=== PATIENT | female | born 1970 | race Caucasian/White ===

== ENCOUNTER → 2020-10-27 15:29 | Outpatient (CLI) | payer BC, SELFPAY ==
[2019-10-02 16:29] VITALS: BMI 35.2
[2020-10-27 17:30] LABS: T4 Free Direct 0.84 ng/dL (0.76-1.46); Thyroid Stim Hormone (TSH) 3.01 uIU/mL (0.358-3.74)
== END ==
LOC: LAB 15:33
PROVIDERS: PCP Family Medicine; Referring Provider Family Medicine; Visit Provider Family Medicine
DX: E03.9 Hypothyroidism, unspecified (principal)
CPT/HCPCS: 36415; 84439; 84443

== ENCOUNTER → 2021-03-20 | Outpatient (CLI) | payer BC, SELFPAY | END | disposition home or self-care (01) | LOC: LABSPEC 16:12 | PROVIDERS: PCP Family Medicine; Visit Provider Physician Assistant Surgical | DX: Z11.52 Encounter for screening for COVID-19 (principal) | CPT/HCPCS: 87635; U0005; U0003 ==

== ENCOUNTER 2021-05-24 15:06 | Emergency (ER) | payer BC, SELFPAY ==
[2021-05-24 15:07] VITALS: BP 188/121; PULSE 107; RESP 14; TEMP 36.4; O2SAT 94; BMI 37.8
--- NOTE | 2021-05-24 15:20 | RAD_ITS ---
STUDY: X-RAY CHEST REASON FOR EXAM: Female, 50 years old. cough TECHNIQUE: 2 views COMPARISON: 12/30/2013 FINDINGS: Cardiomediastinal silhouette is unremarkable. Costophrenic angles are sharp. Multiple linear and patchy opacities noted in the bilateral mid to lower lung zones the trachea is midline. There is no pneumothorax. The bones are grossly intact. RAD/Chest 1 View (Portable) IMPRESSION: Patchy opacities in the bilateral mid to lower lungs, due to multifocal pneumonia or aspiration. Linear opacities bilaterally, suggestive of platelike atelectasis versus linear scars. Electronically Signed: Bob Higgins MD at 16:07 EST Tel , Service support ,
--- NOTE | 2021-05-24 15:20 | EKG12_ITS ---
Test Reason : SOB Blood Pressure : / mmHG Vent. Rate : 089 BPM Atrial Rate : 089 BPM P-R Int : 142 ms QRS Dur : 088 ms QT Int : 394 ms P-R-T Axes : 034 017 071 degrees QTc Int : 479 ms Normal sinus rhythm Normal ECG Confirmed by CHATO SUMMERS ([id number]), staff editor SHELBY RESENDIZ ([id number]) on 05/25/2021 11:09:58 AM Referred By: ROSA M Confirmed By:CHATO SUMMERS
--- NOTE | 2021-05-24 15:37 | EDS_ITS ---
HPI History of Present Illness Chief Complaint: Shortness of Breath Narrative Narrative: 50-year-old female on day 12 of Covid symptoms presenting with shortness of breath. She denies any chest pain, but does feel like her heart is racing. Patient states she is already been on dexamethasone which was prescribed by her primary care physician. She states she does not have any fever, chills anymore. She has not lost her sense of taste or smell. She denies headache, nausea, vomiting. [facility] Medical History Thyroid disease Home Medications dexamethasone 6 mg PO DAILY 05/24/21 [History Last Taken Unknown] levothyroxine [Euthyrox] 50 mcg PO DAILY 05/24/21 [History Last Taken Unknown] Allergy/AdvReac Type Severity Reaction Status Date / Time codeine AdvReac Nausea/Vom/ Verified 05/24/21 15:08 Diarrhea Family History Other Heart disease Hodgkins disease Surgical History History of appendectomy History of tubal ligation Social History Smoking Status: Never smoker ROS ROS ED Constitutional Constitutional ED: Denies fever(s) Eyes Eyes: Denies blurry vision or change in vision ENT ENT ED: Denies rhinorrhea Cardiovascular Cardiovascular: Reports palpitations and racing heartbeat; Denies chest pain Respiratory/Chest Respiratory/Chest: Reports dyspnea; Denies cough Gastrointestinal Gastrointestinal: Denies abdominal pain or nausea Genitourinary Genitourinary ED: Denies dysuria or hematuria Musculoskeletal Musculoskeletal: Denies arthralgias or myalgias Neurologic Neurologic: Denies headache(s) or weakness EXAM Physical Exam Const Vital Signs: 05/24/21 15:07 05/24/21 15:44 05/24/21 15:54 Temperature 97.5 F L Temperature Source Temporal Pulse Rate 107 H 89 Respiratory Rate 14 14 Respiratory Effort Short of Breath Respiratory Depth Shallow Respiratory Pattern Tachypnea Blood Pressure 188/121 H 171/95 H Blood Pressure Mean 143 120 Pulse Ox 94 93 Oxygen Delivery Method Room Air Room Air Room Air 05/24/21 16:34 05/24/21 17:29 Temperature Temperature Source Pulse Rate 87 93 Respiratory Rate 15 20 H Respiratory Effort Respiratory Depth Respiratory Pattern Blood Pressure 166/98 H 166/98 H Blood Pressure Mean 120 Pulse Ox 93 93 Oxygen Delivery Method Room Air Positive well nourished General Appearance ED: NAD HEENT Reports moist mucous membranes atraumatic Eyes PERRL and EOMs intact bilaterally Resp normal respiratory effort and clear to auscultation bilaterally Cardio regular rate and regular rhythm Neuro oriented x3 Sensorium / Orientation: alert Psych mental status grossly normal Thought Process: normal thought process Skin Lesions: no lesions Rashes: no rashes MDM MDM MDM Narrative Medical decision making narrative: Patient presenting with dyspnea. She is not hypoxic and her oxygen has wavered between 93 and 96%. She denies any chest pain. I did obtain an EKG which on my interpretation shows a sinus rhythm at 89 bpm without sign of ischemic change or dysrhythmia. Chest x-ray my interpretation shows bilateral multifocal infiltrates. The radiologist does agree. Her white blood count is 9.8, hemoglobin 14.7, hematocrit 43.0 platelets 669 which is actually high for her. Renal function and electrolytes are normal. LFTs are normal with exception of an ALT of 75. Troponin is negative at 9. I obtained a CTA of the chest which was not diagnostic for PEs. He does identify pulmonary infiltrates as expected from her COVID-19 pneumonitis. Patient has already completed a course of steroids and her work-up is ultimately negative. I did correctional classification counselor her that I feel she is safe to be discharged home. She will follow-up with her primary care provider. She is given return precautions. Impression: 1. COVID-19 pneumonia Lab Data Attestation: I reviewed the patient's lab results. Labs: Laboratory Results - last 24 hr 05/24/21 05/24/21 15:30 15:30 WBC 9.8 RBC 5.13 Hgb 14.7 Hct 43.0 MCV 83.8 MCH 28.7 MCHC 34.2 RDW Std Deviation 40.9 RDW Coeff of Eveline 13.5 Plt Count 669 H MPV 9.5 Immature Gran % (Auto) 1.700 H Neut % (Auto) 81.0 H Lymph % (Auto) 13.2 L Newton % (Auto) 3.2 Eos % (Auto) 0.6 Baso % (Auto) 0.3 Absolute Neuts (auto) 7.9 H Absolute Lymphs (auto) 1.29 Nucleated RBC % 0 Sodium 137 Potassium 3.7 Chloride 106 Carbon Dioxide 23.0 Anion Gap 8 BUN 12 Creatinine 0.66 Estim Creat Clear Calc 87.08 Est GFR (MDRD) Af Amer 121 Est GFR (MDRD) Non-Af 100 BUN/Creatinine Ratio 18.1 Glucose 118 H Calcium 9.0 Total Bilirubin 0.60 AST 31 ALT 75 H Alkaline Phosphatase 76 Troponin I High Sens 9 Total Protein 7.1 Albumin 3.3 Globulin 3.8 Albumin/Globulin Ratio 0.9 Radiography Diagnostic Testing: Clinical Impression(s) from Imaging Studies Chest X-Ray 05/24/21 15:20 IMPRESSION: Patchy opacities in the bilateral mid to lower lungs, due to multifocal pneumonia or aspiration. Linear opacities bilaterally, suggestive of platelike atelectasis versus linear scars. Electronically Signed: Bob Higgins MD at 16:07 EST Tel , Service support , Chest CTA 05/24/21 15:51 IMPRESSION: Findings consistent with Covid 19 pneumonia. No definitive evidence for pulmonary embolus. If strong clinical suspicion for pulmonary embolus DOPPLER ultrasound of deep venous system of lower extremities recommended Electronically Signed: Dago Perera MD at 16:46 EST , Service support , Discharge Plan Triage Chief Complaint: Shortness of Breath ED Provider: Jesus Stewart Dx/Rx/DC Orders Instructions: Coronavirus Disease 2019 (COVID-19): Caring for Yourself or Others Prescriptions: No Action dexamethasone 6 mg tablet 6 mg PO DAILY RF: 0 levothyroxine [Euthyrox] 50 mcg tablet 50 mcg PO DAILY RF: 0 Primary Care Provider: Franco Finch Referrals: Franco Finch DO [Primary Care Provider] - Disposition Disposition: Home, Self Care Discharge Date/Time: 05/24/21 17:30
[2021-05-24 15:38] LABS: Absolute Lymphocyte Count 1.29 X10^3/uL (0.83-4.51); Absolute Neutrophil Count 7.9 X10^3/uL (2.0-7.7); Basophil# 0.03 X10^3/uL; Basophil% 0.3 % (0-1); Eosinophil# 0.06 X10^3/uL; Eosinophils% 0.6 % (0-5); Hemoglobin 14.7 g/dL (12.0-15.0); Lymphocyte # 1.29 X10^3/ul (0.83-4.51); Lymphocyte % 13.2 % (19-41); Mean Corp Hgb Conc 34.2 g/dL (32-36); Mean Corpuscular Hgb 28.7 pg (27.0-32.0); Mean Corpuscular Volume 83.8 fL (81-99); Mean Platelet Vol. 9.5 fl (6.2-12.0); Monocyte# 0.31 X10^3/uL; Monocyte% 3.2 % (0-10); NRBC Flagged by Analyzer 0 % (0-5); Neutrophil # 7.92 X10^3/uL (2.7-7.7); Platelet Count 669 K/mm3 (150-450); RBC Distribution Width CV 13.5 % (11.6-14.6); RBC Distribution Width SD 40.9 fl (35.1-43.9); Red Blood Count 5.13 M/mm3 (4.2-5.4); White Blood Count 9.8 K/mm3 (4.4-11.0)
[2021-05-24 15:44] VITALS: O2SAT 95
--- NOTE | 2021-05-24 15:51 | CT_ITS ---
STUDY: CTA CHEST REASON FOR EXAM: Female, 50 years old. dyspnea RADIATION DOSAGE (If Supplied By Facility): CTDIvol = ( 11.23 ) mGy, DLP = ( 502.24 ) mGycm TECHNIQUE: The examination was performed with the intravenous administration of IV 100mL Isovue-370. Post-processing of the angiographic images was performed, with multiplanar reformation and 3D reconstruction. Individualized dose optimization techniques were used for this CT. COMPARISON: None. FINDINGS: There is less than optimal opacification of the pulmonary arteries due to suboptimal bolus timing however, there is no definitive evidence for intraluminal thrombus within the pulmonary arteries. Normal thoracic aorta and visualized great vessels. There is no demonstrated aortic dissection. Normal heart and pericardium. Normal mediastinum. Normal hilar regions. Normal visualized trachea and bronchi. The lungs are well expanded. There are scattered patchy areas of groundglass opacity with interstitial thickening more pronounced peripherally in both the upper and lower lobes which are consistent with Covid 19 pneumonia. Normal pleura. Normal chest wall structures. Dorsal spine demonstrates mild degenerative change. Normal visualized upper abdomen. CT/CTA Chest W/WO Contrast IMPRESSION: Findings consistent with Covid 19 pneumonia. No definitive evidence for pulmonary embolus. If strong clinical suspicion for pulmonary embolus DOPPLER ultrasound of deep venous system of lower extremities recommended Electronically Signed: Dago Perera MD at 16:46 EST , Service support ,
[2021-05-24 15:54] VITALS: BP 171/95; PULSE 89; RESP 14; O2SAT 93
[2021-05-24 15:58] LABS: ALB/GLOB Ratio 0.9 RATIO (0.9-2.4); AST(SGOT) 31 U/L (15-37); Alanine Aminotransfer ALT/SGPT 75 U/L (13-56); Albumin, Serum 3.3 g/dL (3.2-5.0); Alkaline Phosphatase 76 U/L (45-117); Anion Gap 8 (5-15); BUN 12 mg/dL (7-18); BUN/Creat Ratio 18.1 RATIO (10-20); Chloride 106 mmol/L (98-107); Creatinine, Serum 0.66 mg/dL (0.55-1.02); EST Glomerular Filtration Rate 100 mL/min (>60); Est Glom Filt Rate - Afr Amer 121 mL/min (>60); Estimated Creatinine Clearance 87.08 ml/min; Globulin 3.8 g/dL (2.2-4.2); Glucose 118 mg/dL (74-106); Potassium 3.7 mmol/L (3.5-5.1); Protein, Total 7.1 g/dL (6.4-8.2); Sodium Level 137 mmol/L (136-145); Troponin-I HS 9 pg/mL (3.0-54.0)
[2021-05-24 16:34] VITALS: BP 166/98; PULSE 87; RESP 15; O2SAT 93
[2021-05-24 17:29] VITALS: BP 166/98; PULSE 93; RESP 20; O2SAT 93
== END 2021-05-24 17:30 | disposition home or self-care (01) ==
PROVIDERS: Emergency Provider Student in an Organized Health Care Education/Training Program; PCP Family Medicine
DX: U07.1 COVID-19 (principal); J12.82 Pneumonia due to coronavirus disease 2019; E07.9 Disorder of thyroid, unspecified; Z79.890 Hormone replacement therapy; Z79.899 Other long term (current) drug therapy
CPT/HCPCS: 71045; 71275; 80053; 84484; 85025; 93005; 99284; Q9967; A4216

== ENCOUNTER 2021-09-01 16:41 | Outpatient (CLI) | payer BC, SELFPAY ==
[2021-09-01 17:44] LABS: Absolute Lymphocyte Count 1.82 X10^3/uL (0.83-4.51); Basophil# 0.07 X10^3/uL; Basophil% 1.1 % (0-1); Eosinophil# 0.18 X10^3/uL; Eosinophils% 2.7 % (0-5); Hematocrit 40.6 % (37-47); Hemoglobin 13.5 g/dL (12.0-15.0); Lymphocyte # 1.82 X10^3/ul (0.83-4.51); Lymphocyte % 27.7 % (19-41); Mean Corp Hgb Conc 33.3 g/dL (32-36); Mean Corpuscular Hgb 29.3 pg (27.0-32.0); Mean Corpuscular Volume 88.3 fL (81-99); Mean Platelet Vol. 11.1 fl (6.2-12.0); Monocyte# 0.45 X10^3/uL; Monocyte% 6.8 % (0-10); NRBC Flagged by Analyzer 0 % (0-5); Neutrophil # 4.04 X10^3/uL (2.7-7.7); Neutrophil % 61.5 % (47-70); Platelet Count 316 K/mm3 (150-450); RBC Distribution Width CV 13.6 % (11.6-14.6); RBC Distribution Width SD 44.3 fl (35.1-43.9); White Blood Count 6.6 K/mm3 (4.4-11.0)
[2021-09-01 18:07] LABS: Vitamin D,25 Hydroxy 12.7 ng/mL
[2021-09-01 18:14] LABS: Ferritin 51 ng/mL (8-252); T4 Free Direct 0.76 ng/dL (0.76-1.46); Thyroid Stim Hormone (TSH) 3.08 uIU/mL (0.358-3.74)
[2021-09-04 14:06] LABS: Vitamin D 1,25-Dihydroxy 48.5 pg/mL (19.9-79.3); Zinc, WHOLE BLOOD 584 ug/dL (440-860)
== END 2021-09-01 23:59 | disposition home or self-care (01) ==
LOC: MTLAB 16:41
PROVIDERS: PCP Family Medicine; Referring Provider Dermatology; Visit Provider Dermatology
DX: L65.0 Telogen effluvium (principal); L82.1 Other seborrheic keratosis; L81.4 Other melanin hyperpigmentation; D22.5 Melanocytic nevi of trunk; L57.8 Other skin changes due to chronic exposure to nonionizing radiation; L40.0 Psoriasis vulgaris; Z71.89 Other specified counseling
CPT/HCPCS: 36415; 82306; 82652; 82728; 84439; 84443; 84630; 85025

== ENCOUNTER 2021-12-15 06:54 | Day surgery (SDC) | payer BC, SELFPAY ==
--- NOTE | 2021-12-08 14:54 | PCM.HP.BLA ---
History and Physical Date of Admission: 12/15/21 HPI: The patient is a 51 year old female presenting for pre-operative visit. She is scheduled for hysteroscopy D&C with possible polyp resection, for AUB, endometrial polyp on . Procedure discussed along with risks, benefits and complications. Other alternatives discussed for management. Consent form signed? yes. ? ? PAST MEDICAL HISTORY PAST MEDICAL HISTORY Diagnosis Date ? Anxiety ? ? Hyperlipidemia ? ? Hypothyroid ? ? ? PAST SURGICAL HISTORY PAST SURGICAL HISTORY Procedure Laterality Date ? APPENDECTOMY ? 1988 ? TUBAL LIGATION, ? 1990 ? ? ? CURRENT MEDICATIONS Current Outpatient Medications Medication Sig Dispense Refill ? LORazepam (ATIVAN) 0.5 mg TAKE 1 TABLET BY MOUTH EVERY DAY AT BEDTIME NEEDED FOR ANXIETY. EACH FILL MUST LAST 30 DAYS OR LONGER. ? ? ? levothyroxine (LEVOXYL) 50 mcg tablet Take 1 tablet by mouth once daily. Take on empty stomach. For Thyroid 30 tablet 2 ? miSOPROStol (CYTOTEC) 200 mcg tablet Use 2 tablets vaginally as directed. The night before the procedure and the morning of the procedure. (Patient not taking: Reported on 11/02/2021 ) 4 tablet 0 ? No current facility-administered medications for this visit. ? ? ALLERGIES: Codeine, Celexa [Citalopram Hydrobromide], Lisinopril, and Zoloft [Sertraline Hcl] ? PERSONAL HISTORY: SOCIAL HISTORY Social History ? Tobacco Use ? Smoking status: Former Smoker ? ? Packs/day: 1.00 ? ? Years: 20.00 ? ? Pack years: 20.00 ? ? Types: Cigarettes ? Smokeless tobacco: Never Used ? Tobacco comment: quit 2009 Vaping Use ? Vaping Use: Never used Substance Use Topics ? Alcohol use: No ? Drug use: No ? FAMILY HISTORY: FAMILY HISTORY FAMILY HISTORY Problem Relation Age of Onset ? Hypertension Mother ? ? Psychiatry Mother ? ? depression ? other (aortic stenosis) Mother ? ? other (atrial fibrillation) Mother ? ? other (Hodgkin's disease) Father ? ? Anxiety disorder Brother ? ? other (diverticulitis) Brother ? ? Seizures Son ? ? Heart Maternal Grandmother ? ? other (cva) Maternal Grandmother ? ? Heart Paternal Grandfather ? ? Breast Cancer Maternal Aunt ? ? ? REVIEW OF SYMPTOMS: GENERAL: denies fevers or chills ENDOCRINOLOGY: has not been on steroids Cardiology : denies palpitations or chest pain Respiratory: denies SOB or cough Hematology: denies history of prolonged bleeding or easy bruising or VTE Allergy: Denies history of personal or family history of allergy to anesthesia ? PHYSICAL EXAMINATION: ? VITALS: Last menstrual period 10/25/2021. ? GENERAL: The patient is well nourished, well hydrated in no acute distress. , The patient is oriented to time, place, and person. NECK: Supple. No lynphadenopathy, normal thyroid, no thyromegaly. LUNGS: Clear to auscultation bilaterally. no wheezes, rhonchi or rales HEART: Regular rate and rhythm, Normal heart sounds and No murmurs or gallops ? ? PELVIC US 11/02/21: Impression Normal appearing anteverted uterus that measures 90 mm x 46 mm x 53 mm. The central endometrium complex measures 6.8 mm in combined thickness. There is a heterogenous area noted with blood flow, this could represent a small polyp. The contour of the endometrial cavity was normal on 3-D imaging. Both ovaries are visualized. the right ovary is normal. the left ovary has a small ?simple appearing cyst that measures 2.8cm in greatest dimension. There is no free fluid visualized in the peritoneal cavity. ? IMPRESSION: AUB, endometrial polyp ? PLAN: The risks/benefits/alternatives and personal involved for the planned hysteroscoy D&C with possible polyp resection were reviewed with the patient. Her questions were answered to her satisfaction and she desires to proceed. Consent was signed. I reviewed with her postop instructions and expectations. ? ? I have reviewed and updated past medical and surgical history, medications and allergies Assessment & Plan Assessment/Plan (1) Abnormal uterine bleeding (AUB): (2) Endometrial polyp:
[2021-12-15 07:23] VITALS: BP 151/96; PULSE 89; RESP 16; TEMP 36.2; O2SAT 100; BMI 36.9
[2021-12-15] MEDS: Acetaminophen 500 MG Tablet 1000 MG PO (07:28)
[2021-12-15] MEDS: Ketorolac 30 MG/ML Syringe IV (07:28)
[2021-12-15] MEDS: Lactated Ringers 1,000 ML 70 ML IV (07:28)
[2021-12-15 07:31] LABS: Hematocrit 41.1 % (37-47); Hemoglobin 13.5 g/dL (12.0-15.0); Mean Corp Hgb Conc 32.8 g/dL (32-36); Mean Corpuscular Hgb 28.8 pg (27.0-32.0); Mean Corpuscular Volume 87.6 fL (81-99); Platelet Count 291 K/mm3 (150-450); RBC Distribution Width CV 12.8 % (11.6-14.6); Red Blood Count 4.69 M/mm3 (4.2-5.4); White Blood Count 5.6 K/mm3 (4.4-11.0)
[2021-12-15 07:34] LABS: Internal QC Validated? YES +Cl - CLEAR BKGD; Pregnancy, Urine Negative Negative
--- NOTE | 2021-12-15 08:35 | EMB_PTH ---
PATIENT: REENA PETTY LOC: [facility] U#:[id number] AGE/SX: 51/F ROOM: RE12/15/[address]: Dr. Renee Luna MD : 1970 BED: DIS: 12/15/2021 SPEC #: [id number] RECD: 12/15/21 10:10 STATUS: GLORIA RERito #: [id number] NOEMI: 12/15/21 08:[address]: Renee Luna DEPT: SURGICAL PATHOLOGY RECD BY: Lexie Jeffries ENTERED: 12/15/21 10:57 SP TYPE: ENDOM BX/C OTHR DR: Dr. Franco Finch, DO Tissues: Endometrium, NOS Procedures: Surgery Specimen Level IV HEADER OPERATION: Hysteroscopy, Symphion D & C PRE-OP DIAGNOSIS: Endometrial polyp, abnormal uterine bleeding TISSUE SUBMITTED: Endometrial curettings MICROSCOPIC DIAGNOSIS Endometrial curettings: Scant strips of benign endometrial epithelium. Fragments of benign ecto- and endocervical epithelium, blood and mucous. A few minute fragments of myometrium. See comment. CARLOS:abdi 12/16/2021 COMMENT The specimen predominantly consists of blood, mucous and fragments of benign ecto- and endocervical epithelium. Clinical correlation and appropriate follow up are necessary. MICROSCOPIC DESCRIPTION Slides are reviewed. GROSS DESCRIPTION Received in fixative is one container labeled with the patient's name and designated endometrial curettings. The specimen consists of multiple fragments of hemorrhagic soft tissue mixed with mucoid tissue that in aggregate measure 3 x 2.5 x 0.1 cm. The specimen is totally submitted in one cassette. / CARLOS:abdi 12/15/2021 TC:4 CPT: 29703
[2021-12-15] MEDS: Lidocaine 1% /Epi 1:100 (20ml) 20 ML Vial (09:20)
--- NOTE | 2021-12-15 09:34 | PCM.DC ---
Discharge Instructions Diet Discharge Diet: No restrictions Activity Return to work on:: 12/16/21 May shower in (days): 1 May resume sexual activity in: 1 week Lifting Restrictions: none Dressing / Incision Call your doctor if your incision/area has: Sudden Increased Bleeding and Foul Smelling Discharge Call your doctor if you observe: Fever of 101 or Higher and Using more than 1 pad per hour (for 2 hrs in a row) Follow Up Care Please Follow Up With: Renee Luna MD When: 2-4 weeks or as needed. Call [phone] to make an appointment or with any concerns. Test Results: Test results from this visit will be discussed in further detail at your follow-up appointment, if applicable. Discharge Plan Admission Primary Reason for Your Visit: D&C Attending Provider: Renee Luna Primary Care Provider: Franco Finch Discharge Orders/Prescriptions Prescriptions: No Action levothyroxine [Euthyrox] 50 mcg tablet 50 mcg PO DAILY RF: 0 lorazepam 0.5 mg tablet 0.5 mg PO QHS RF: 0 Referrals / Follow Up: Franco Finch DO [Primary Care Provider] - Disposition Disposition (needs filled in before D/C Order can be placed): Home, Self Care
[2021-12-15] MEDS: Lactated Ringers 1,000 ML 75 ML IV (09:35)
--- NOTE | 2021-12-15 09:50 | PCM.OPRPT ---
Problems Associated Problem List Diagnoses (1) Abnormal uterine bleeding (AUB): Report of Operation Date of Procedure: 12/15/21 Pre-Operative Diagnosis: AUB Post-Operative Diagnosis: same Surgery/Procedure Performed:: Hysteroscopy D&C Description of Surgical Findings:: thin endometrium, normal cervix and vagina, no uterine pathology noted Surgeon: Renee Luna prefinish operator: None Type of Anesthesia: MAC/Supplemental/Local Anesthesiologist: Maude Gerardo Special Medications: none Specimen's removed: endometrial curettings Drains: none Estimated Blood Loss (mL): 10 Fluids Replaced: 900 Description of Procedure: The patient was taken to the OR where she was prepped and draped in dorsal lithotomy position. The weighted speculum was placed in the vagina and the anterior lip of the cervix was grasped with a single-tooth tenaculum. A paracervical block was administered with 1% lidocaine with 1-100,000 epinephrine solution. The cervix was dilated serially with Hegar dilators. The 5mm hysteroscope was placed into the uterine cavity and the above findings were noted. Bilateral tubal ostia were identified. The hysteroscope was removed. A gentle sharp curettage was done of the uterine cavity. The instruments were removed from the vagina. The specimen was handed off and sent to pathology. All sponge and needle counts were correct. Vaginal sweep was performed by me. The patient was awakened and taken to the recovery room in stable condition. Hysteroscopic fluid deficit 100 cc of normal saline Findings: Endometrial cavity: Normal, no fibroids or polyps noted Cervix: Normal Vagina: Normal Grafts/Implants Used: none Procedure Start Time: 09:44 Procedure Stop Time: 09:50 Complications none Admit VTE Documentation VTE Present on Admission: No VTE Mechan Device Prophylaxis: SCD's VTE Pharm Prophylaxis ordered?: No Reason prophylaxis not ordered:: Procedure Not Indicated
[2021-12-15 10:00] VITALS: BP 138/74; BP 151/96; PULSE 80; RESP 15; TEMP 36.1; O2SAT 91
[2021-12-15 10:05] VITALS: BP 117/77; BP 151/96; PULSE 72; RESP 16; O2SAT 93
[2021-12-15 10:10] VITALS: BP 128/76; BP 151/96; PULSE 74; RESP 16; O2SAT 97
[2021-12-15 10:15] VITALS: BP 126/75; BP 151/96; PULSE 73; RESP 15; TEMP 36.1; O2SAT 97
[2021-12-15 10:36] VITALS: BP 151/96
== END 2021-12-15 10:50 | disposition home or self-care (01) ==
LOC: SDC 06:57 → AC 06:58
PROVIDERS: PCP Family Medicine; Referring Provider Obstetrics & Gynecology; Visit Provider Obstetrics & Gynecology
PROC: 0UB98ZZ Excision of Uterus, Via Natural or Artificial Opening Endoscopic (ICD-10-PCS; CPT 58558; principal; 2021-12-15 08:20)
DX: N93.9 Abnormal uterine and vaginal bleeding, unspecified (principal); E78.5 Hyperlipidemia, unspecified; E03.9 Hypothyroidism, unspecified; F41.9 Anxiety disorder, unspecified; Z79.890 Hormone replacement therapy; Z79.899 Other long term (current) drug therapy; Z87.891 Personal history of nicotine dependence
CPT/HCPCS: 58558; 81025; 85027; 88305; J7120; J2405

== ENCOUNTER → 2022-02-15 | Outpatient (CLI) | payer BC, SELFPAY ==
--- NOTE | 2022-02-15 16:14 | US_ITS ---
STUDY: SUPERFICIAL ULTRASOUND - RIGHT FOREARM REASON FOR EXAM: Female, 51 years old. MASS RT FOREARM TECHNIQUE: A superficial ultrasound was performed with real-time and static case-scale imaging. COMPARISON: None. FINDINGS: Ultrasound evaluation of the right forearm in the area of concern shows a complex 2.8 x 2.4 x 0.8 cm complex subcutaneous lesion. There is some subtle vascularity noted. Findings suggest a likely posttraumatic hematoma or seroma. Similar area of the left forearm performed for comparison and there is no corresponding abnormal in the left forearm. US/Ext Non Vasc Limited/Soft Tiss IMPRESSION: Complex solid and cystic 2.8 x 2.4 x 0.8 cm lesion in the subcutaneous fat of the right forearm. Likely post traumatic hematoma or seroma. Follow-up recommended to ensure resolution Electronically Signed: Miles Rivas MD at 11:19 EDT ,
== END | disposition home or self-care (01) ==
LOC: US 16:10
PROVIDERS: PCP Family Medicine; Referring Provider Family Medicine; Visit Provider Family Medicine
DX: R22.31 Localized swelling, mass and lump, right upper limb (principal)
CPT/HCPCS: 76882

== ENCOUNTER → 2022-11-17 | Outpatient (CLI) | payer BC, SELFPAY ==
--- NOTE | 2022-11-17 15:07 | ECHOD_ITS ---
Reason For Study: Palpitations Procedure This was a 2D Doppler, Color Flow transthoracic echocardiogram. Exam performed in department. Left Ventricle Normal LV size. Left ventricular systolic function is normal. The estimated ejection fraction is 60 %. Stage 1 diastolic dysfunction. No regional wall motion abnormalities noted. Right Ventricle Normal RV size. Normal systolic function. Atria Normal left atrium. Normal right atrium. Mitral Valve Normal mitral valve. Tricuspid Valve Normal tricuspid valve. Mild tricuspid valve insufficiency. Pulmonary artery systolic pressure is 30 mmHg. Aortic Valve Normal aortic valve. Trisinus/trileaflet aortic valve. Pulmonic Valve Normal pulmonic valve. Great Vessels Normal aortic root. The pulmonary artery is normal size. Normal inferior vena cava. Pericardium/Pleural No pericardial effusion. MMode/2D Measurements & Calculations LVIDd: 4.0 cm IVSd: 0.96 cm Ao root diam: 3.3 cm LVIDs: 2.7 cm LVPWd: 0.71 cm LA dimension: 4.0 cm RVDd: 3.4 cm FS: 31.3 % LAV(MOD-bp): 49.4 ml LVAd ap4: 28.6 cm2 SV(MOD-sp4): 51.9 ml LAV(MOD-bp) Indexed: 24.6 ml/m2 LVLd ap4: 7.6 cm LAV(MOD-sp2): 55.8 ml EDV(MOD-sp4): 86.0 ml LAV(MOD-sp4): 41.5 ml EDV(sp4-el): 90.9 ml LVAs ap4: 16.1 cm2 LVLs ap4: 6.3 cm ESV(MOD-sp4): 34.1 ml ESV(sp4-el): 34.7 ml EF(MOD-sp4): 60.3 % EF(sp4-el): 61.8 % SV(sp4-el): 56.1 ml LA A4 area: 17.1 cm2 RA A4 area: 12.7 cm2 Time Measurements MV dec time: 0.26 sec Doppler Measurements & Calculations MV E max paul: 67.6 cm/sec Lat Peak E' Paul: 12.5 cm/sec Med Peak E' Paul: 8.4 cm/sec MV A max paul: 81.4 cm/sec E/E' lat: 5.4 E/E' med: 8.1 MV E/A: 0.83 MV V2 max: 84.9 cm/sec MV P1/2t max paul: 75.0 cm/sec Ao V2 max: 132.3 cm/sec MV max P.9 mmHg MV P1/2t: 84.3 msec Ao max P.0 mmHg MV V2 mean: 53.0 cm/sec Ao V2 mean: 92.7 cm/sec MV mean P.3 mmHg MV dec slope: 260.7 cm/sec2 Ao mean P.9 mmHg MV V2 VTI: 21.9 cm MVA(P1/2t): 2.6 cm2 Ao V2 VTI: 32.0 cm AV (velocity ratio): 0.82 LV V1 max: 109.8 cm/sec PA V2 max: 109.6 cm/sec TR max apul: 253.7 cm/sec LV V1 max P.8 mmHg PA V2 mean: 76.2 cm/sec TR max P.7 mmHg LV V1 mean P.5 mmHg LV V1 mean: 73.8 cm/sec LV V1 VTI: 26.4 cm ECHO/Echo Complete Interpretation Summary Normal LV size. Left ventricular systolic function is normal. The estimated ejection fraction is 60 %. Stage 1 diastolic dysfunction. Pulmonary artery systolic pressure is 30 mmHg. Ordering Physician: Lupillo Curtis Referring Physician: Franco Finch Performed By: Brenden Mills RCS
== END | disposition home or self-care (01) ==
LOC: CVS 14:59
PROVIDERS: PCP Family Medicine; Referring Provider Internal Medicine Cardiovascular Disease; Visit Provider Internal Medicine Cardiovascular Disease
DX: R00.2 Palpitations (principal); I10 Essential (primary) hypertension
CPT/HCPCS: 93306

== ENCOUNTER → 2023-08-13 | Outpatient (CLI) | payer OTHER, SELFPAY ==
--- OUTSIDE RECORDS SUMMARY | 2023-08-13 09:56 | XMS RPT_ITS | CCD ---
Author Name Unknown Address [address] [place] [address] Organization [facility] Care Team Providers Care Manager Hematology Name Role Phone Shavon Finch APRN.CNP Primary Care Provider SHAVON FINCH Attending Unavailable SHAVON FINCH Primary Care Unavailable SHAVON FINCH Referring Unavailable SHAVON FINCH Primary Care Unavailable Allergies Allergy Classification Reported Allergen(s) Allergy Type Date of Onset Reaction(s) Facility (11 sources) Citalopram; Translations: [CITALOPRAM HYDROBROMIDE] Drug Allergy 01-15-2016 Other: See Comments [facility] Work Phone: (11 sources) Codeine; Translations: [CODEINE] Drug Allergy 06-23-2010 Vomiting [facility] (11 sources) Lisinopril; Translations: [LISINOPRIL] Drug Allergy 02-04-2016 Other: See Comments [facility] Work Phone: (11 sources) Sertraline; Translations: [SERTRALINE HCL] Drug Allergy 02-04-2016 Intolerance [facility] Work Phone: Medications Current Medications Medication Drug Class(es) Dates Sig (Normalized) Sig (Original) betamethasone 0.5 mg/ml / clotrimazole 10 mg/ml topical cream (2 sources) Azole Antifungal, Corticosteroid Start: 10-26-2021 End: 11-02-2021 clotrimazole-beta methasone (LOTRISONE) cream Apply 1 application to affected area twice daily for 7 days. 15 g 0 10/26/2021 11/02/2021 Active Completed/Discontinued Medications Medication Drug Class(es) Dates Sig (Normalized) Sig (Original) amLODIPine 5 mg oral tablet (3 sources) Dihydropyridine Calcium Channel Rafael Start: 08-18-2022 take 1 tablet by mouth once daily amLODIPine (NORVASC) 5 mg tablet Indications: Hypertension, essential Take 1 tablet by mouth once daily. 30 tablet 1 08/18/2022 Active Problems Active Problems Problem Classification Problem Date Documented Date Episodic/Chronic Disorders of lipid metabolism (13 sources) Hyperlipidemia; Translations: [Hyperlipidemia, unspecified] Onset: 06-23-2010 06-23-2010 Chronic Essential hypertension (14 sources) Essential hypertension; Translations: [Essential (primary) hypertension] Onset: 01-15-2016 01-15-2016 Chronic Menopausal disorders (2 sources) Postmenopausal bleeding; Translations: [Postmenopausal bleeding] Chronic Mood disorders (10 sources) Depressive disorder; Translations: [Depression] Onset: 01-15-2016 01-15-2016 Chronic Osteoarthritis (10 sources) Arthritis of right ankle; Translations: [Primary osteoarthritis, right ankle and foot] Onset: 01-15-2014 01-15-2014 Chronic Other and unspecified benign neoplasm (1 source) Lipoma of trunk; Translations: [Benign lipomatous neoplasm of skin and subcutaneous tissue of trunk] Episodic Other female genital disorders (1 source) Abnormal uterine bleeding; Translations: [Abnormal uterine and vaginal bleeding, unspecified] Chronic Other female genital disorders (1 source) Polyp of corpus uteri; Translations: [Polyp of corpus uteri] Episodic Other nutritional; endocrine; and metabolic disorders (10 sources) Obesity; Translations: [Obesity, unspecified] Onset: 01-15-2014 01-15-2014 Chronic Other screening for suspected conditions (not mental disorders or infectious disease) (1 source) Endometrium thickened; Translations: [Abnormal findings on diagnostic imaging of other specified body structures] Chronic Other screening for suspected conditions (not mental disorders or infectious disease) (5 sources) Patient encounter status; Translations: [Encounter for screening mammogram for malignant neoplasm of breast] Episodic Thyroid disorders (1 source) Subclinical hypothyroidism; Translations: [Other specified hypothyroidism] Chronic Past or Other Problems Problem Classification Problem Date Documented Da te Episodic/Chronic Acquired foot deformities (10 sources) Talipes planus; Translations: [Flat foot [pes planus] (acquired), unspecified foot] Onset: 01-15-2014 01-15-2014 Episodic Cardiac dysrhythmias (12 sources) Palpitations; Translations: [Palpitations] Onset: 01-15-2016 01-15-2016 Episodic Results Test Name Value Interpretation Reference Range Facil ity Vital Signs Date Time Vital Sign Value Performing Clinician Lexis georgie 08-18-2022 16:56-0500 Body height 161.8 cm Shavon Josette PRODUCTION TECHNICIAN.[employer] Work Phone: [facility] 08-18-2022 16:56-0500 Body weight 101.79 kg Shavon Josette PRODUCTION TECHNICIAN.[employer] Work Phone: [facility] 08-18-2022 16:56-0500 Diastolic blood pressure 96 mm[Hg] Shavon Josette PRODUCTION TECHNICIAN.[employer] Work Phone: [facility] 08-18-2022 16:56-0500 Heart rate 83 /min Shavon Josette PRODUCTION TECHNICIAN.[employer] Work Phone: [facility] 08-18-2022 16:56-0500 Respiratory rate 16 /min Shavon Josette PRODUCTION TECHNICIAN.[employer] Work Phone: [facility] 08-18-2022 16:56-0500 SaO2% (BldA) [Mass fraction] 94 % Shavon Josette PRODUCTION TECHNICIAN.[employer] Work Phone: [facility] 08-18-2022 16:56-0500 Systolic blood pressure 164 mm[Hg] Shavon Josette PRODUCTION TECHNICIAN.[employer] Work Phone: [facility] 10-26-2021 16:14-0400 Body weight 102.51 kg Alyssa Hawthorne PRODUCTION TECHNICIAN.[employer] Work Phone: [facility] 10-26-2021 16:14-0400 Diastolic blood pressure 88 mm[Hg] Alyssa Jeff PRODUCTION TECHNICIAN.[employer] Work Phone: [facility] 10-26-2021 16:14-0400 Systolic blood pressure 138 mm[Hg] Alyssa Jeff PRODUCTION TECHNICIAN.[employer] Work Phone: [facility] Encounters Encounter Date Encounter Type Care Provider Facility Start: 04-27-2023 ambulatory Shavonbg parker PRODUCTION TECHNICIAN[employer] Work Phone: [facility] [place] Start: 09-13-2022 Telephone encounter Shavon Jimenez PRODUCTION TECHNICIAN.[employer] Work Phone: Family Medicine [place] Procedures Date Procedure Procedure Detail Performing Clinician Start: 08-16-2022 Lipid 1996 panel - S vincent or Plasma Shavon Finch PRODUCTION TECHNICIAN[employer] Work Phone: Start: 08-25-2015 Mammography Alyssa [facility] PRODUCTION TECHNICIAN.[employer] Work Phone: Plan of Treatment Date Care Activity Detail Author Start: 08-16-2027 Lipid 1996 panel - S vincent or Plasma Lipid Screening [facility] Start: 08-16-2027 LIPID SCREEN LIPID SCREEN [facility] Start: 08-16-2025 DIABETES SCREEN DIABETES SCREEN [facility] Start: 08-16-2025 Diabetes Screening Diabetes Screenin g [facility] Start: 07-30-2024 HPV TESTING HPV TESTING [facility] Start: 07-30-2024 PAP TESTING PAP TESTING [facility] Start: 08-18-2023 ANNUAL PCP TEAM BAR SUPERVISOR DEMETRIUS DISEASE VISIT ANNUAL PCP TEAM CHRONIC DISEASE VISIT [facility] Start: 08-18-2023 Urine microalbumin profile [facility] Payers Date Payer Category Payer Unknown [employer] [employer] P[employer] [id number] 2019-Present [phone] [address] [place] [id number] PPO [id number] 2019 Unknown [employer] PPO [id number] 2019-Present [phone] [address] [place] [address] PPO [id number] 2019 Unknown [id number] Social History Date Type Detail Facility Start: 08-25-2015 End: 08-18-2022 Tobacco smoking status NHIS Ex-smoker [facility] Work Phone: History of tobacco use Cigarette Smoker C [facility] Work Phone: Start: 05-26-2020 End: 08-18-2022 Alcohol intake Current non-drinker of alcohol (finding) [facility] Start: 07-30-2019 End: 08-11-2022 History SDOH Social Connections Phone 5 [facility] Start: 07-30-2019 End: 08-11-2022 History SDOH Social Connections Get Together 3 [facility] Start: 07-30-2019 End: 08-11-2022 History SDOH Social Connections Jain 2 [facility] Start: 07-30-2019 End: 08-11-2022 History SDOH Social Connections Membership 1 [facility] Start: 07-30-2019 End: 08-11-2022 History SDOH Social Connections Living 4 [facility] Start: 07-30-2019 End: 08-11-2022 History SDOH Physical Activity DPW 0 [facility] Start: 07-30-2019 Education 13 [facility] Start: 1970 Sex Assigned At Not on file C [facility] Start: 10-16-2021 End: 11-24-2021 Exposure to SARS-CoV-2 (event) Not sure [facility] History of tobacco use Current smoker [facility] Work Phone: Start: 08-25-2015 End: 08-06-2022 Cigarettes smoked current (pack per day) - Reported 1 [facility] Start: 08-25-2015 End: 08-18-2022 Tobacco use and exposure Smokeless tobacco non-user [facility] Work Phone: Start: 08-18-2022 Tobacco Comment quit 2008 [facility] Start: 08-06-2022 End: 08-11-2022 Social connection and isolation panel [facility] Do you belong to any clubs or organizations such as adventism groups, unions, fraternal or athletic groups, or school groups? Yes [facility] Are you now , , , , never or living with a partner? [facility] How often to you hav e a drink containing alcohol? Never [facility] How many standard dr inks containing alcohol do you have on a typical day? Patient does not drink [facility] How hard is it for y ou to pay for the very basics like food, housing, medical care, and heating Somewhat hard [facility] Do you feel stress - tense, restless, nervous, or anxious, or unable to sleep at night because your mind is troubled all the time - these days [OSQ] Rather much [facility] (I/We) worried wheth er (my/our) food would run out before (I/we) got money to buy more. Never true [facility] In the past 12 month s, was there a time when you were not able to pay the mortgage or rent on time? No [facility] Clinical Notes 10-26-2021 to 04-27-2023 Telephone Encounter - Madelin Esposito Pss - 09/13/2022 4:14 PM ESTTelephone Encounter - Gisel Ayers LPN - 09/13/2022 3:05 PM ESTJazzmin Holiday - 08/18/2022 6:18 PM ESTPatient Instructions Note Date & Type Note Facility 04-27-2023 Note Patient Outreach (IN TMMN) JANAY PETTY ([id number]) 1970 F Date Time Provider Department 04/27/23 SHAVON FINCH During your visit today, we recorded the following information about you: Allergies As of Date: 04/27/2023 Noted Allergy Reaction CODEINE 06/23/2010 11 - Vomiting CELEXA (CITALOPRAM HYDROBROMIDE) 01/15/2016 14 - Other: See Comments Comments: Nausea and jaws felt tight LISINOPRIL 02/04/2016 14 - Other: See Comments Comments: Burning mouth and neck/throat tightness ZOLOFT (SERTRALINE HCL) 02/04/2016 5 - Intolerance Comments: Food and taste alteration, palpitations, decreased appetite Date Reviewed: 08/18/2022 Reviewed by: Shavon Finch APRN.[employer] - Fully Assessed Visit Diagnosis:Encounter for screening mammogram for breast cancer [Z12.31] Order(s):[facility] SCREENING [[id number]] Order #: [id number] FUTURE Prescriptions as of 05/02/2023 - levothyroxine (LEVOXYL) 50 mcg tablet Take 1 tablet by mouth once daily. Take on empty stomach. For Thyroid - amLODIPine (NORVASC) 5 mg tablet Take 1 tablet by mouth once daily. - LORazepam (ATIVAN) 0.5 mg TAKE 1 TABLET BY MOUTH EVERY DAY AT BEDTIME NEEDED FOR ANXIETY. EACH FILL MUST LAST 30 DAYS OR LONGER. Problem List As Of Date 04/27/2023 Noted Resolved Hyperlipidemia [E78.5] Flat foot [M21.40] 01/15/2014 Obesity [E66.9] 01/15/2014 Arthritis of ankle, right [M19.071] 01/15/2014 Depression [F32.A] 01/15/2016 Essential hypertension [I10] 01/15/2016 Palpitations [R00.2] 01/15/2016 Encounter Status:Closed by [email or web address] on 05/02/23 [facility] 11-04-2022 Note HNO ID: [id number] Author: Torsten Chung Service: ? Author Type: ? Type: Progress Notes Filed: 11/04/2022 11:16 AM Note Text: 3rd failed attempt to schedule colonoscopy. Left VM, sent MyChart, and letter. JN 11/04 [facility] 09-13-2022 Miscellaneous Notes Patient is requesting referral and any testing for Cardiology be faxed to [facility] [place] [facility] as we are scheduling out several Months in [place]. Phoned patient and reviewed results and recommendations with her. She voiced understanding and was directed to scheduling desk for consult appointment. Please let Janay know that I received her heart monitor results. There were a few areas of elevated heart beat and some beats that may have caused some of the feelings she is having. I d like her to see cardiology for their opinion and to see if they feel any further testing or monitoring would be appropriate. Please assist her to schedule this appointment. Shavon Finch APRN.CHAITANYA documented in this encounter [facility] 08-19-2022 Note HNO ID: [id number] Author: Neeta Barnes Service: ? Author Type: ? Type: Progress Notes Filed: 08/19/2022 11:10 AM Note Text: 08-19 1'st failed attempt to contact patient to schedule colonoscopy. Left message to return call. Neeta Barnes [facility] 08-18-2022 Note HNO ID: [id number] Author: Shavon Finch APRN.CHAITANYA Service: ? Author Type: Nurse Practitioner Type: Progress Notes Filed: 08/18/2022 7:08 PM Note Text: Chief Complaint Patient presents with: Yearly Exam: Discuss thyroid HPI Janay Petty is a 51 year old female who presents here today for Above Complaints. Today: Has been having some intermittent palpitations-notices moreso when laying down. Does have some fatigue. BP at home has been running 140's/80-90's at home. Would like to get caught up on her health maintenance. Past medical history, appointments, medications, allergies reviewed. Previous Medical History PAST MEDICAL HISTORY Diagnosis Date Anxiety Hyperlipidemia Hypothyroid Previous Surgical History PAST SURGICAL HISTORY Procedure Laterality Date APPENDECTOMY 1988 TUBAL LIGATION, 1990 Family History FAMILY HISTORY Problem Relation Age of Onset Hypertension Mother Psychiatry Mother depression other (aortic stenosis) Mother other (atrial fibrillation) Mother other (Hodgkin's disease) Father Anxiety disorder Brother other (diverticulitis) Brother Seizures Son Heart Maternal Grandmother other (cva) Maternal Grandmother Heart Paternal Grandfather Breast Cancer Maternal Aunt Patient Allergies ALLERGIES Allergen Reactions Codeine Vomiting Celexa [Citalopram * Other: See Comments Nausea and jaws felt tight Lisinopril Other: See Comments Burning mouth and neck/throat tightness Zoloft [Sertraline * Intolerance Food and taste alteration, palpitations, decreased appetite Current Medications Current Outpatient Medications on File Prior to Visit Medication Sig LORazepam (ATIVAN) 0.5 mg TAKE 1 TABLET BY MOUTH EVERY DAY AT BEDTIME NEEDED FOR ANXIETY. EACH FILL MUST LAST 30 DAYS OR LONGER. levothyroxine (LEVOXYL) 50 mcg tablet Take 1 tablet by mouth once daily. Take on empty stomach. For Thyroid No current facility-administered medications on file prior to visit. Social History Social History Tobacco Use Smoking status: Former Packs/day: 1.00 Years: 20.00 Pack years: 20.00 Types: Cigarettes Smokeless tobacco: Never Tobacco comments: quit 2008 Vaping Use Vaping Use: Never used Substance Use Topics Alcohol use: No Drug use: No Review of Symptoms REVIEW OF SYSTEMS See HPI, otherwise negative EXAM: BP 164/96 (BP Site: Left Arm, BP Position: Sitting, BP Cuff Size: Regular Adult) Pulse 83 Resp 16 Ht 161.8 cm (5' 3.7 ) Wt 101.8 kg (224 lb 6.4 oz) LMP 10/25/2021 (Exact Date) SpO2 94% BMI 38.88 kg/m? General Appearance: Well appearing, alert, in no acute distress, well-hydrated, well nourished.. Skin: Skin color, texture, turgor normal, no suspicious rashes or lesions. Head: Normocephalic, no masses, lesions, tenderness or abnormalities. Eyes: Anicteric sclera. Pupils are equally round and reactive to light. Extraocular movements are intact. . Ears: External ears normal, canals clear. Nose/Sinuses: Nares normal, septum midline, mucosa normal, no drainage or sinus tenderness. Oropharynx: Lips, mucosa, and tongue normal, teeth and gums normal, oropharynx normal. Neck: Supple, no adenopathy; thyroid symmetric, normal size, no bruits. Lungs: Lungs clear to auscultation. No wheezing, rhonchi, rales.. Heart: RRR without murmur, gallop, or rubs. No ectopy. Abdomen: Normal abdominal exam, Abdomen soft, non-tender. Bowel sounds normal. No organomegaly. Tennis ball-sized soft, nonpainful, moveable mass to LUQ just over lower ribs Extremities: No deformities, edema, skin discoloration, clubbing or cyanosis. Good capillary refill. . Musculoskeletal: No joint swelling, deformity, or tenderness. Peripheral Pulses: Normal. Neurologic: Gait normal. Reflexes normal and symmetric. Sensation grossly intact.. Lymph Nodes: No cervical lymphadenopathy and No supraclavicular lymphadenopathy. Psychiatric: pleasant, cooperative. Health Maintenance List HEPATITIS B(1 of 3 - 3-dose series) Never done COVID-19 VACCINE(1) Never done HEPATITIS C SCREENING Never done HIV SCREENING Never done BP CONTROLLED (<130/80) Never done DTAP,TDAP,TD(1 - Tdap) Never done COLORECTAL CANCER SCREENING Never done MAMMOGRAM due on 08/25/2016 SHINGRIX VACCINE(1 of 2) Never done ANNUAL PCP TEAM CHRONIC DISEASE VISIT due on 05/26/2021 INFLUENZA(1) due on 03/11/2022 PAP TESTING due on 07/30/2024 HPV TESTING due on 07/30/2024 DIABETES SCREEN due on 08/16/2025 LIPID SCREEN due on 08/16/2027 Data reviewed Previous records, office notes ASSESSMENT/PLAN: 1. Hypertension, essential - ICD9: 401.9, ICD10: I10 (primary diagnosis) - newly diagnosed - Begin amlodipine (Norvasc) - Encouraged dietary sodium restriction/DASH diet - Recommended regular aerobic exercise. - Recommend home blood pressure monitoring, to bring results in on next visit - Discussed need and benefit for weigh (more content not included)... [facility] 08-18-2022 Nurse Note EVENT MONITOR DISPOSABLE PATCH INSTRUCTIONS Patient Name: Janay Petty [facility] Number: [id number] Skin prepped and cleansed with alcohol Patch secured to prepped area Monitor Activated Serial #: [id number] Patient Instructed: Prescribed order timeframe Bathing guidelines Usage of event button and diary documentation Return of monitor at the end of prescribed order Call with problems [phone] or [phone]. [phone] Patient expresses a good understanding of instructions Rhina Hess documented in this encounter [facility] 08-18-2022 Note HNO ID: [id number] Author: Azul Wolfe MD Service: Cardiovascular Surgery Author Type: Physician Type: Procedures Filed: 09/13/2022 7:11 AM Note Text: Patient Name: Janay Petty : 1970 Ordering Provider: Shavon Finch Indication: I10 Essential (primary) hypertension Type of Monitor: Extended Monitoring-Zio Patch Enrollment Dates: 08/18/2022-09/01/2022 [facility] 08-18-2022 Instructions Shavon Finch APRN.CNP - 08/18/2022 5:25 PM EST Images from the original note were not included. Schedule your Mammogram that is ordered Schedule your colonoscopy Start your amlodipine for BP once daily in the mornings. Monitor your blood pressure and heart rate and record these. Bring them along with your cuff to your follow appointment in 1 month. Our ultimate goal is to be under 130/80. Blood pressure parameters: Let us know if your BP is sustained greater than: 170/100 Let us know if your BP is less than: 100/60-and hold your medication this day Vitamin D3 supplement-take [id number] international unit(s) daily-you can find this in the vitamin section Bowel Preparation Instructions for: Miralax-Gatorade Preparations IF YOU DO NOT FOLLOW THESE DIRECTIONS, YOUR COLONOSCOPY WILL BE CANCELLED. [place] Instructions: Your bowel must be empty so that your doctor can clearly view your colon. Follow all of the instructions in this handout EXACTLY as they are written. Do NOT eat any solid food the ENTIRE day before your colonoscopy. Buy your bowel preparation at least 5 days before your colonoscopy. Four (4) Dulcolax laxative tablets containing 5mg of bisacodyl each (NOT Dulcolax stool softener) One (1) 8.3oz. bottle Miralax (238 grams) or generic equivalent 2 x 32oz. Bottles of Gatorade (NOT RED) Diabetic Patients: Use G2 (Gatorade 2) TRANSPORTATION on the Day of Your Exam A responsible adult MUST be present with you at Check In prior to your colonoscopy and REMAIN in the endoscopy area until you are discharged. You are NOT ALLOWED to drive, take a taxi or bus, or leave the Endoscopy Center ALONE. If you do not have a responsible wrecking car driver (family member or friend) with you to take you home, your exam cannot be done with sedation and will be cancelled. Please bring a list of all of your current medications, including any Uqyr-[id number] medications with you. Medications If you take insulin, diabetic medications or blood thinners such as Coumadin (warfarin), Plavix (clopidogrel), Ticlid (ticlopidine hydrochloride), Agrylin (anagrelide), Xarelto (Rivaroxaban), Pradaxa (Dabigatran), Eliquis (Apixaban), and Effient (Prasugrel). You MUST call the doctors who orders those medicines for instructions on altering the dosage before your colonoscopy. All other medications should be taken the day of the exam with a sip of water including ASPIRIN. Five (5) Days Before Your Colonoscopy Do NOT take medicines that stop diarrhea - such as Imodium, Kaopectate, or Pepto Bismol. Do NOT take fiber supplements - such as Metamucil, Citrucel, or Perdiem. Do NOT take products that contain iron - such as multi-vitamins (the label lists what is in the products). Three (3) Days Before Your Colonoscopy Do NOT eat high-fiber foods - such as popcorn, beans, seeds (flax, sunflower, quinoa), multigrain bread, nuts, salad/vegetables, or fresh and dried fruit. 1 Bowel Preparation Instructions for: Miralax-Gatorade Preparations One (1) Day Before Your Colonoscopy Only drink clear liquids the ENTIRE DAY before your colonoscopy. Do NOT eat any solid foods. Drink at least 8 ounces of clear liquids every hour after waking up. The clear liquids you can drink include: Clear Liquid (NO RED LIQUIDS) DO NOT DRINK Gatorade, Pedialyte or Powerade Clear broth or bouillon Coffee or tea (no milk or non-dairy creamer) Carbonated and non-carbonated soft drinks William-Aid or other fruit flavored drinks Strained fruit juices (no pulp) Jell-O, popsicles, hard candy Water Alcohol Milk or non-dairy creamers Noodles or vegetables in soup Juice with pulp Liquid you cannot see through Do not use tobacco/vaping products Mix 1/2 of Miralax bottle (119 grams) in each 32 ounces of Gatorade bottle until dissolved. Keep cool in the refrigerator. DO NOT ADD ICE. The bowel preparation solution will be consumed in two parts. Part 1 5:00 PM - Evening before your colonoscopy Take 4 Dulcolax tablets. 6 PM - Evening before your colonoscopy Drink 32 oz. of the mixed solution. Drink an 8 oz. glass of bowel preparation every 15 minutes for a total of 4 glasses. Fifteen (15) minutes later, drink an 8 oz. glass of of clear liquids every 15 minutes for a total of 2 glasses. You may continue to drink clear liquids till midnight. Part 2 On the day of your colonoscopy you may drink clear liquids up to (three) 3 hours prior to procedure. 4 1/2 hours before your colonoscopy Take another 32 oz. bottle of mixed solution. Drink an 8 oz. glass of bowel prep every 15 minutes for a total of 4 glasses. Fifteen (15) minutes later, drink an 8 oz. glass of clear liquids every 15 minutes for a total of 2 glasses. You may continue to drink clear liquids up to (three) 3 hours before your exam. 2 06/2019 documented in this encounter [facility] 08-18-2022 History of Presen t illness Narrative Chief Complaint Patient presents with: Yearly Exam: Discuss thyroid HPI Janay Petty is a 51 year old female who presents here today for Above Complaints. Today: Has been having some intermittent palpitations-notices moreso when laying down. Does have some fatigue. BP at home has been running 140's/80-90's at home. Would like to get caught up on her health maintenance. Past medical history, appointments, medications, allergies reviewed. Previous Medical History PAST MEDICAL HISTORY Diagnosis Date Anxiety Hyperlipidemia Hypothyroid Previous Surgical History PAST SURGICAL HISTORY Procedure Laterality Date APPENDECTOMY 1988 TUBAL LIGATION, 1990 Family History FAMILY HISTORY Problem Relation Age of Onset Hypertension Mother Psychiatry Mother depression other (aortic stenosis) Mother other (atrial fibrillation) Mother other (Hodgkin's disease) Father Anxiety disorder Brother other (diverticulitis) Brother Seizures Son Heart Maternal Grandmother other (cva) Maternal Grandmother Heart Paternal Grandfather Breast Cancer Maternal Aunt Patient Allergies ALLERGIES Allergen Reactions Codeine Vomiting Celexa [Citalopram * Other: See Comments Nausea and jaws felt tight Lisinopril Other: See Comments Burning mouth and neck/throat tightness Zoloft [Sertraline * Intolerance Food and taste alteration, palpitations, decreased appetite Current Medications Current Outpatient Medications on File Prior to Visit Medication Sig LORazepam (ATIVAN) 0.5 mg TAKE 1 TABLET BY MOUTH EVERY DAY AT BEDTIME NEEDED FOR ANXIETY. EACH FILL MUST LAST 30 DAYS OR LONGER. levothyroxine (LEVOXYL) 50 mcg tablet Take 1 tablet by mouth once daily. Take on empty stomach. For Thyroid No current facility-administered medications on file prior to visit. Social History Social History Tobacco Use Smoking status: Former Packs/day: 1.00 Years: 20.00 Pack years: 20.00 Types: Cigarettes Smokeless tobacco: Never Tobacco comments: quit 2008 Vaping Use Vaping Use: Never used Substance Use Topics Alcohol use: No Drug use: No Review of Symptoms REVIEW OF SYSTEMS See HPI, otherwise negative EXAM: BP 164/96 (BP Site: Left Arm, BP Position: Sitting, BP Cuff Size: Regular Adult) Pulse 83 Resp 16 Ht 161.8 cm (5' 3.7 ) Wt 101.8 kg (224 lb 6.4 oz) LMP 10/25/2021 (Exact Date) SpO2 94% BMI 38.88 kg/m General Appearance: Well appearing, alert, in no acute distress, well-hydrated, well nourished.. Skin: Skin color, texture, turgor normal, no suspicious rashes or lesions. Head: Normocephalic, no masses, lesions, tenderness or abnormalities. Eyes: Anicteric sclera. Pupils are equally round and reactive to light. Extraocular movements are intact. . Ears: External ears normal, canals clear. Nose/Sinuses: Nares normal, septum midline, mucosa normal, no drainage or sinus tenderness. Oropharynx: Lips, mucosa, and tongue normal, teeth and gums normal, oropharynx normal. Neck: Supple, no adenopathy; thyroid symmetric, normal size, no bruits. Lungs: Lungs clear to auscultation. No wheezing, rhonchi, rales.. Heart: RRR without murmur, gallop, or rubs. No ectopy. Abdomen: Normal abdominal exam, Abdomen soft, non-tender. Bowel sounds normal. No organomegaly. Tennis ball-sized soft, nonpainful, moveable mass to LUQ just over lower ribs Extremities: No deformities, edema, skin discoloration, clubbing or cyanosis. Good capillary refill. . Musculoskeletal: No joint swelling, deformity, or tenderness. Peripheral Pulses: Normal. Neurologic: Gait normal. Reflexes normal and symmetric. Sensation grossly intact.. Lymph Nodes: No cervical lymphadenopathy and No supraclavicular lymphadenopathy. Psychiatric: pleasant, cooperative. Health Maintenance List HEPATITIS B(1 of 3 - 3-dose series) Never done COVID-19 VACCINE(1) Never done HEPATITIS C SCREENING Never done HIV SCREENING Never done BP CONTROLLED (<130/80) Never done DTAP,TDAP,TD(1 - Tdap) Never done COLORECTAL CANCER SCREENING Never done MAMMOGRAM due on 08/25/2016 SHINGRIX VACCINE(1 of 2) Never done ANNUAL PCP TEAM CHRONIC DISEASE VISIT due on 05/26/2021 INFLUENZA(1) due on 03/11/2022 PAP TESTING due on 07/30/2024 HPV TESTING due on 07/30/2024 DIABETES SCREEN due on 08/16/2025 LIPID SCREEN due on 08/16/2027 Data reviewed Previous records, office notes ASSESSMENT/PLAN: 1. Hypertension, essential - ICD9: 401.9, ICD10: I10 (primary diagnosis) - newly diagnosed - Begin amlodipine (Norvasc) - Encouraged dietary sodium restriction/DASH diet - Recommended regular aerobic exercise. - Recommend home blood pressure monitoring, to bring results in on next visit - Discussed need and benefit for weight loss. - Follow up in 1 month for BP recheck. - Goal of BP <130/80 - AMLODIPINE 5 MG TABLET - ECG COMPLETE - OUTSIDE VENDOR CARDIAC OUTPATIENT EXTENDED RHYTHM RECORDING (WITHOUT TELEMETRY) 2. Subclinical hypothyroidism - ICD9: 244.8, ICD10: E03.8 - Instructed patient on importance of taking on an empty stomach either first thing in the morning or at bedtime. Continue current levothyroxine 50mcg daily dose - LEVOTHYROXINE 50 MCG TABLET 3. Palpitations - ICD9: 785.1, ICD10: R00.2 Possible etiology of anxiety. Given elevated BP and the palpitations, r/o cardiac cause. - ECG COMPLETE - OUTSIDE VENDOR CARDIAC OUTPATIENT EXTENDED RHYTHM RECORDING (WITHOUT TELEMETRY) 4. Lipoma of torso - ICD9: 214.1, ICD10: D17.1 Is non-painful, monitor. 5. Screening for colon cancer - ICD9: V76.51, ICD10: Z12.11 - COLONOSCOPY SCREENING 6. Screening for malignant neoplasm of the rectum - ICD9: V76.41, ICD10: Z12.12 - COLONOSCOPY SCREENING 7. Special screening for malignant neoplasms, colon - ICD9: V76.51, ICD10: Z12.11 - COLONOSCOPY SCREENING Shavon Finch APRN.CNP documented in this encounter [facility] 08-16-2022 Miscellaneous Notes Looks like labs are in process. Rhina Hess Lab orders signed. Shavon Finch APRN.CNP Pt scheduled for Annual visit with PCP on 08/18/22. Requesting labs to be done prior to appt. Labs pending. Please file and notify pt. Torsten Freeman LPN documented in this encounter [facility] 05-19-2022 Note Patient Outreach (IN [facility]) JANAY PETTY ([id number]) 1970 F Date Time Provider Department 05/19/22 SHAVON FINCH During your visit today, we recorded the following information about you: Allergies As of Date: 05/19/2022 Noted Allergy Reaction CODEINE 06/23/2010 11 - Vomiting CELEXA (CITALOPRAM HYDROBROMIDE) 01/15/2016 14 - Other: See Comments Comments: Nausea and jaws felt tight LISINOPRIL 02/04/2016 14 - Other: See Comments Comments: Burning mouth and neck/throat tightness ZOLOFT (SERTRALINE HCL) 02/04/2016 5 - Intolerance Comments: Food and taste alteration, palpitations, decreased appetite Date Reviewed: 11/24/2021 Reviewed by: Renee Luna MD - Fully Assessed Visit Diagnosis:Encounter for screening mammogram for breast cancer [Z12.31] Order(s):[facility] SCREENING [[id number]] Order #: [id number] FUTURE Prescriptions as of 05/24/2022 - LORazepam (ATIVAN) 0.5 mg TAKE 1 TABLET BY MOUTH EVERY DAY AT BEDTIME NEEDED FOR ANXIETY. EACH FILL MUST LAST 30 DAYS OR LONGER. - miSOPROStol (CYTOTEC) 200 mcg tablet Use 2 tablets vaginally as directed. The night before the procedure and the morning of the procedure. - levothyroxine (LEVOXYL) 50 mcg tablet Take 1 tablet by mouth once daily. Take on empty stomach. For Thyroid Problem List As Of Date 05/19/2022 Noted Resolved Hyperlipidemia [E78.5] Flat foot [M21.40] 01/15/2014 Obesity [E66.9] 01/15/2014 Arthritis of ankle, right [M19.071] 01/15/2014 Depression [F32.A] 01/15/2016 Essential hypertension [I10] 01/15/2016 Palpitations [R00.2] 01/15/2016 Encounter Status:Closed by ADELA GABRIEL on 05/24/22 [facility] 12-16-2021 Miscellaneous Notes Patient notified of information below. Aurelia Mcdowell RN Please notify patient of benign pathology. This is great news. She might bleed or spot for up to a week or so. Follow up for annual next year or as needed. Have a great rest of the week. Renee Luna MD documented in this encounter [facility] 12-15-2021 History of Presen t illness Narrative Patient underwent hysteroscopy D&C for PMB and possible polyp. No discrete polyp noted. thin endometrium. No discrete abnormalities. Pathology pending. Renee Luna MD documented in this encounter [facility] 11-05-2021 Miscellaneous Notes I spoke with the pt regarding her US and EMB results. Surgery sheet started for Jeremy. Hysteroscopy D&C, polypectomy. Alyssa Aguilar APRN.CNP documented in this encounter [facility] 10-26-2021 History of Presen t illness Narrative Janay Petty is a 51 year old female who presents for problem visit PMB for 1 day. HPI: Pt last period was Jul 2019. She started with bleeding yesterday that was spoty, today a little more clotting today. She is having cramping and tender breast. Thyroid level 3.8 done within the past 3 months OB History T4 L4 SAB0 IAB0 Ectopic0 Multiple0 Live Births0 [employer] History LMP: 07/26/2019, Having periods Age at Menarche: Age at First : Age at Menopause: [employer] History Comments: Sexual Activity: Yes; No partner data on record Contraception: Tubal Ligation PAST MEDICAL HISTORY Diagnosis Date Anxiety Hyperlipidemia Hypothyroid PAST SURGICAL HISTORY Procedure Laterality Date APPENDECTOMY 1988 TUBAL LIGATION, 1990 FAMILY HISTORY Problem Relation Age of Onset Hypertension Mother Psychiatry Mother depression other (aortic stenosis) Mother other (atrial fibrillation) Mother other (Hodgkin's disease) Father Anxiety disorder Brother other (diverticulitis) Brother Seizures Son Heart Maternal Grandmother other (cva) Maternal Grandmother Heart Paternal Grandfather Breast Cancer Maternal Aunt Social History Tobacco Use Smoking status: Former Smoker Packs/day: 1.00 Years: 20.00 Pack years: 20.00 Types: Cigarettes Smokeless tobacco: Never Used Tobacco comment: quit 2008 Vaping Use Vaping Use: Never used Substance Use Topics Alcohol use: No Drug use: No Current Outpatient Medications Medication Sig LORazepam (ATIVAN) 0.5 mg TAKE 1 TABLET BY MOUTH EVERY DAY AT BEDTIME NEEDED FOR ANXIETY. EACH FILL MUST LAST 30 DAYS OR LONGER. levothyroxine (LEVOXYL) 50 mcg tablet Take 1 tablet by mouth once daily. Take on empty stomach. For Thyroid No current facility-administered medications for this visit. Allergies As of Date: 10/26/2021 Allergen Noted Reaction CODEINE 06/23/2010 Vomiting CELEXA [CITALOPRAM HYDROBROMIDE] 01/15/2016 Other: See Comments LISINOPRIL 02/04/2016 Other: See Comments ZOLOFT [SERTRALINE HCL] 02/04/2016 Intolerance Fully Assessed 10/26/2021 REVIEW OF SYSTEMS Abdomen: No bloating, early satiety, indigestion, or increased flatulence. No nausea, vomiting, diarrhea, or constipation. +cramping Bladder: No dysuria, gross hematuria, urinary frequency, urinary urgency, or incontinence. Breast: No breast lumps, nipple d/c, overlying skin changes, redness or skin retraction. +tenderness Expanded ROS: N/A Allergies and current medication updated:Yes EXAM: LMP 07/26/2019 GENERAL: pleasant, female in no apparent distress HEENT: Normocephalic, atraumatic, mucus membranes moist and no lesions CHEST: Normal inspiratory effort PELVIC: external genitalia normal, normal Bartholin's glands, urethra, Fontenelle's glands, no vulvar lesions, no cervical lesions, normal appearing perineal body and perianal region, + bright red bleeding from the cervix BIMANUAL: uterus normal size, shape and consistency, no adnexal masses and non-tender NEURO: alert and oriented x3,exam grossly non-focal EXTREMITIES: normal ASSESSMENT/PLAN: 1. Post-menopausal bleeding - ICD9: 627.1, ICD10: N95.0 - PELVIC US WHI - ENDOMETRIAL BIOPSY - FSH BLD Alyssa Aguilar APRN.CNP Medical Decision Making: Problems: Moderate: New problem with uncertain prognosis Data: Unique test(s) ordered: 2 Risk: Low: Low risk from testing/treatment Medical Decision Making Level: 3 - Low documented in this encounter [facility] Diagnosis PMB (postmenopausal bleeding)- Primary Postmenopausal bleeding Endometrial polyp Polyp of corpus uteri documented in this encounter [facility] note* Diagnosis Thickened endometrium- Primary Nonspecific (abnormal) findings on radiological and other examination of genitourinary organs Abnormal uterine bleeding (AUB) documented in this encounter [facility] note* Diagnosis Encounter for screening mammogram for breast cancer documented in this encounter [facility] note* Diagnosis Well adult exam- Primary Routine general medical examination at a health care facility Hyperlipidemia, unspecified hyperlipidemia type Essential hypertension Unspecified essential hypertension documented in this encounter [facility] note* Diagnosis Hypertension, essential- Primary Unspecified essential hypertension Subclinical hypothyroidism Other specified acquired hypothyroidism Palpitations Lipoma of torso Screening for colon cancer Special screening for malignant neoplasms, colon Screening for malignant neoplasm of the rectum Special screening for malignant neoplasms, colon documented in this encounter [facility] note* Diagnosis Hypertension, essential- Primary Unspecified essential hypertension Palpitations Hyperlipidemia, unspecified hyperlipidemia type documented in this encounter [facility] note* Diagnosis Encounter for screening mammogram for breast cancer [facility] Diagnostic Procedure Only (Routine) - Authorized Specialty Diagnoses / Procedures Referred By Merline khan Referred To Contact [facility] Diagnoses Post-menopausal bleeding Procedures PELVIC US WHI US PELVIC NONOBSTETRIC REAL-TIME IMAGE COMPLETE Alyssa Aguilar APRN.CNP [address] [place] [address] [facility] [address] [place] [address] Referral ID Status Reason Start Date Expiration Date Visits Requested Visits Authorized [id number] Authorized Auto-Generat ed Referral 10/26/2021 10/26/2022 1 1 [facility] Diagnostic Procedure Only (Routine) - Pending Review Specialty Diagnoses / Procedures Referred By Merline khan Referred To Contact [facility] Diagnoses Encounter for screening mammogram for breast cancer Procedures DAREN SCREENING SCREENING MAMMOGRAPHY BI 2-VIEW BREAST INC Shavon Cisneros APRN.[employer] [address] [place] [address] [facility] [address] [place] [address] Referral ID Status Reason Start Date Expiration Date Visits Requested Visits Authorized [id number] Pending Review Auto-Generat ed Referral 05/19/2022 06/18/2023 1 1 [facility] for referral (narrative)* Outpatient Procedure (Routine) - Pending Review Specialty Diagnoses / Procedures Referred By Contac t Referred To Contact [facility] Diagnoses Hypertension, essential Palpitations Procedures ECG COMPLETE ECG ROUTINE ECG W/LEAST 12 LDS W/I&R Shavon Finch APRN.[employer] [address] [place] [address] [facility] [address] [address] Referral ID Status Reason Start Date Expiration Date Visits Requested Visits Authorized [id number] Pending Review Auto-Generat ed Referral 08/18/2022 08/18/2023 1 1 * Outpatient Procedure (Routine) - Pending Review Specialty Diagnoses / Procedures Referred By Merline t Referred To Contact [facility] Diagnoses Screening for colon cancer Procedures COLONOSCOPY SCREENING COLONOSCOPY FLX DX W/COLLJ SPEC WHEN PFRMD Shavon Finch APRN.[employer] [address] [place] [address] [facility] [address] [place] [id number] Referral ID Status Reason Start Date Expiration Date Visits Requested Visits Authorized [id number] Pending Review Auto-Generat ed Referral 08/18/2022 08/18/2023 1 1 [facility] for referral (narrative)* Diagnostic Procedure Only (Routine) - Pending Review Specialty Diagnoses / Procedures Referred By Merline t Referred To Contact [facility] Diagnoses Encounter for screening mammogram for breast cancer Procedures DAREN SCREENING SCREENING MAMMOGRAPHY BI 2-VIEW BREAST INC CAD Shavon Finch APRN.[employer] [address] [place] [address] [facility] [address] [place] [address] Referral ID Status Reason Start Date Expiration Date Visits Requested Visits Authorized [id number] Pending Review Auto-Generat ed Referral 3 05/26/2024 1 1 [facility] Reason for Referral Specialty Diagnoses / Procedures Referred By Merline khan Referred To Contact Cardiology Diagnoses Hypertension, essential Palpitations Hyperlipidemia, unspecified hyperlipidemia type Procedures CONSULT TO CARDIOLOGY OFFICE/OUTPATIENT NEW HIGH MDM 60-74 MINUTES Shavon Finch APRN.CNP [address] [place] [address] Referral ID Status Reason Start Date Expiration Date Visits Requested Visits Authorized [id number] Authorized PCP Requested Referral 09/13/2022 09/13/2023 1 1 Summary Purpose Family History No Family History Records Found Advance Directives No Advanced Directives Records Found Additional Source Comments Source Comments (unrecognize d section and content) In the event this informatio n is protected by the Federal Confidentiality of Alcohol and Drug Abuse Patient Records regulations: The Federal rules restrict any use of the information to criminally investigate or prosecute any alcohol or drug abuse patient.[facility] the event this information is protected by the Federal Confidentiality of Alcohol and Drug Abuse Patient Records regulations: The Federal rules restrict any use of the information to criminally investigate or prosecute any alcohol or drug abuse patient.[facility] the event this information is protected by the Federal Confidentiality of Alcohol and Drug Abuse Patient Records regulations: The Federal rules restrict any use of the information to criminally investigate or prosecute any alcohol or drug abuse patient.[facility] the event this information is protected by the Federal Confidentiality of Alcohol and Drug Abuse Patient Records regulations: The Federal rules restrict any use of the information to criminally investigate or prosecute any alcohol or drug abuse patient.[facility] the event this information is protected by the Federal Confidentiality of Alcohol and Drug Abuse Patient Records regulations: The Federal rules restrict any use of the information to criminally investigate or prosecute any alcohol or drug abuse patient.[facility] the event this information is protected by the Federal Confidentiality of Alcohol and Drug Abuse Patient Records regulations: The Federal rules restrict any use of the information to criminally investigate or prosecute any alcohol or drug abuse patient.[facility] the event this information is protected by the Federal Confidentiality of Alcohol and Drug Abuse Patient Records regulations: The Federal rules restrict any use of the information to criminally investigate or prosecute any alcohol or drug abuse patient.[facility] Hospital[facility] the event this information is protected by the Federal Confidentiality of Alcohol and Drug Abuse Patient Records regulations: The Federal rules restrict any use of the information to criminally investigate or prosecute any alcohol or drug abuse patient.[facility] the event this information is protected by the Federal Confidentiality of Alcohol and Drug Abuse Patient Records regulations: The Federal rules restrict any use of the information to criminally investigate or prosecute any alcohol or drug abuse patient.[facility] the event this information is protected by the Federal Confidentiality of Alcohol and Drug Abuse Patient Records regulations: The Federal rules restrict any use of the information to criminally investigate or prosecute any alcohol or drug abuse patient.[facility] Reason for Visit (unrecogniz ed section and content) 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 Reason Comments Results Reason Comments Orders Reason Comments Yearly Exam Discuss thyroid Reason Comments Results Appointment Care Teams (unrecognized sec tion and content) Manager Hematology Relationship Specialty Start Date End Date Shavon Finch, PRODUCTION TECHNICIAN.[employer] [address] [place] [address] PCP - General Family Practice 05/26/21 Manager Hematology Relationship Specialty Start Date End Date Shavon Finch, PRODUCTION TECHNICIAN.[employer] [address] [place] [address] PCP - General Family Practice 05/26/21 Manager Hematology Relationship Specialty Start Date End Date Shavon Finch, PRODUCTION TECHNICIAN.[employer] [address] [place] [address] PCP - General Family Practice 05/26/21 Manager Hematology Relationship Specialty Start Date End Date Shavon Finch, PRODUCTION TECHNICIAN.[employer] [address] [place] [address] PCP - General Family Medicine 05/26/21 Manager Hematology Relationship Specialty Start Date End Date Shavon Finch, PRODUCTION TECHNICIAN.[employer] [address] [place] [address] PCP - General Family Medicine 05/26/21 Manager Hematology Relationship Specialty Start Date End Date Shavon Finch, PRODUCTION TECHNICIAN.[employer] [address] [place] [address] PCP - General Family Medicine 05/26/21 Manager Hematology Relationship Specialty Start Date End Date Shavon Finch, PRODUCTION TECHNICIAN.[employer] [address] [place] [address] PCP - General Family Medicine 05/26/21 Manager Hematology Relationship Specialty Start Date End Date Shavon FinchSANDEEP [address] [id number] PCP - General Family Medicine 05/26/21 INFORMATION SOURCE (unrecogn ized section and content) FOR RECORDS PERTAINING TO PATIENTS WHO ARE OR HAVE BEEN ENROLLED IN A CHEMICAL DEPENDENCY/SUBSTANCEABUSE PROGRAM, SOME INFORMATION MAY BE OMITTED. This clinical summary was aggregated from multiple sources. Caution should be exercised in using it in the provision of clinical care. This summary normalizes information from multiple sources, and as a consequence, information in this document may materially change the coding, format and clinical context of patient data. In addition, data may be omitted in some cases. CLINICAL DECISIONS SHOULD BE BASED ON THE PRIMARY CLINICAL RECORDS. [employer] provides no warranty or guarantee of the accuracy or completeness of information in this document.
[2023-08-13 10:34] LABS: Absolute Lymphocyte Count 1.58 X10^3/uL (0.83-4.51); Absolute Neutrophil Count 3.1 X10^3/uL (2.0-7.7); Basophil# 0.08 X10^3/uL; Basophil% 1.5 % (0-1); Eosinophil# 0.11 X10^3/uL; Eosinophils% 2.1 % (0-5); Hemoglobin 13.8 g/dL (12.0-15.0); Lymphocyte # 1.58 X10^3/ul (0.83-4.51); Lymphocyte % 30.2 % (19-41); Mean Corp Hgb Conc 32.9 g/dL (32-36); Mean Corpuscular Hgb 28.8 pg (27.0-32.0); Mean Corpuscular Volume 87.5 fL (81-99); Mean Platelet Vol. 11.7 fl (6.2-12.0); Monocyte# 0.38 X10^3/uL; Monocyte% 7.3 % (0-10); NRBC Flagged by Analyzer 0 % (0-5); Neutrophil # 3.07 X10^3/uL (2.7-7.7); Neutrophil % 58.5 % (47-70); Platelet Count 262 K/mm3 (150-450); RBC Distribution Width CV 13.2 % (11.6-14.6); RBC Distribution Width SD 42.5 fl (35.1-43.9); White Blood Count 5.2 K/mm3 (4.4-11.0)
[2023-08-13 10:56] LABS: ALB/GLOB Ratio 1.2 RATIO (0.9-2.4); AST(SGOT) 12 U/L (15-37); Alanine Aminotransfer ALT/SGPT 21 U/L (13-56); Alkaline Phosphatase 79 U/L (45-117); Anion Gap 2 (5-15); BUN 10 mg/dL (7-18); BUN/Creat Ratio 17.4 RATIO (10-20); Calcium,Total 9.6 mg/dL (8.5-10.1); Chloride 110 mmol/L (98-107); Cholesterol 175 mg/dL (200); Creatinine, Serum 0.57 mg/dL (0.55-1.02); EST Glomerular Filtration Rate 117 mL/min (>60); Est Glom Filt Rate - Afr Amer 141 mL/min (>60); Globulin 3.2 g/dL (2.2-4.2); Glucose 99 mg/dL (74-106); High Density Lipoprotein 32 mg/dL; Protein, Total 7.2 g/dL (6.4-8.2); Sodium Level 139 mmol/L (136-145); T4 Free Direct 0.76 ng/dL (0.76-1.46); Thyroid Stim Hormone (TSH) 7.65 uIU/mL (0.358-3.74); Triglycerides 158 mg/dL; Very Low Density Lipoprotein 32 mg/dL (5-40)
== END | disposition home or self-care (01) ==
PROVIDERS: PCP Family Medicine; Referring Provider Nurse Practitioner Family; Visit Provider Nurse Practitioner Family
DX: Z00.01 Encounter for general adult medical examination with abnormal findings (principal); E03.9 Hypothyroidism, unspecified
CPT/HCPCS: 36415; 80053; 80061; 84439; 84443; 85025